=== PATIENT | male | born 1960 | race Caucasian/White ===

== ENCOUNTER → 2018-11-03 | Outpatient (CLI) | payer BC | LOC: COL.RAD 09:27 | DX: C61 Malignant neoplasm of prostate (principal); M19.011 Primary osteoarthritis, right shoulder; M19.012 Primary osteoarthritis, left shoulder | CPT/HCPCS: A9503 ==

== ENCOUNTER 2018-11-25 08:10 | Inpatient (IN) | payer BC ==
[~2018-11-25] VITALS: Ht 182.9 cm; Wt 94.5 kg
[2018-12-10] MEDS ORDERED: COZAAR 50MG50 MG/TAB PO (10:43)
[2018-12-11] VITALS (12 sets, daily range): BP systolic 115–125; BP diastolic 70–83; PULSE 55–83; TEMP 97.7–98
[2018-12-11] MEDS ORDERED: AMOXICILLIN 50500 MG PO (06:38)
[2018-12-11 07:17] LABS: BASO # 0.1 (0.0-0.2); BASO % 0.7 % (0.0-2.0); EOS # 0.2 (0.0-0.7); EOS % 2.4 % (0-4.0); GRAN # 4.7 (1.4-6.5); GRAN % 65.8 % (42.2-75.2); HEMATOCRIT 46.3 % (42.0-52.0); HEMOGLOBIN 16.3 g/dl (13.5-18.0); LYMPH # 1.7 (1.2-3.4); LYMPH % 23.6 % (20.0-51.0); MEAN CELL VOLUME 90 fl (80.0-100.0); MEAN CORPUSCULAR HEMOGLOBIN 32 pg (27.0-31.0); MEAN CORPUSCULAR HGB CONC 35 g/dl (33.0-37.0); MONO # 0.5 (0.1-0.6); MONO % 7.1 % (1.7-9.3); PLATELET COUNT 203 K/mm3 (130-400); RED BLOOD COUNT 5.12 M/mm3 (4.20-5.60); REDCELL DISTRIBUTION WIDTH-CV 12.6 % (11.5-14.5)
[2018-12-11 07:21] LABS: CALCIUM 9.2 mg/dL (8.4-10.2); CREATININE, serum 0.88 (0.66-1.25); POTASSIUM 4.2 mmol/L (3.4-5.0)
--- NOTE | 2018-12-11 12:30 | NUR ---
Patient up from OR to room by bed. Alert and oriented x3. Family at bedside. Lap sites x5 with swiftset, CDI. Lai drain to LLQ with ELIGIO to bulb compression, bloody drainage present. Reynolds to dependent drainage with blood tinged urine present in bag. SCDs to BLE. Post op VSS. Denies pain or further needs at this time.
--- NOTE | 2018-12-11 19:34 | NUR ---
Patient in bed resting. States that Dr. Fitch told him that he should not ambulate tonight due to complexity of procedure. Reynolds maintained to dependent drainage with clear yellow urine present. States pain to lower back (chronic), given tylenol and toradol per orders. Denies further needs at this time. 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
--- NOTE | 2018-12-11 23:14 | NUR ---
Patient resting in bed with at bedside. Has continued clear liquid diet. States pain to abdomen is 3/10, but pain to back is 8/10. PRN Tramadol (2 tabs) given. Upon reassessment, patient was snoring with eyes closed. Noted to have drain to left abdomen to bulb compression. Reynolds draining clear, yellow urine. States sometimes he uses heating pad at home for back pain, but does not want to use one here because he feels too hot. Patient denies any further needs.
[2018-12-12 01:41] VITALS: BP 123/76; PULSE 63; TEMP 97.7
--- NOTE | 2018-12-12 03:37 | NUR ---
Patient awake in bed at this time looking at his phone. Requested and received fresh ice water. Denies further needs.
[2018-12-12 04:00] VITALS: BP 120/82; PULSE 60; TEMP 98.2
[2018-12-12 07:00] LABS: BASO % 0.2 % (0.0-2.0); EOS # 0.1 (0.0-0.7); EOS % 0.5 % (0-4.0); GRAN # 8.1 (1.4-6.5); HEMATOCRIT 38.4 % (42.0-52.0); LYMPH # 1.9 (1.2-3.4); LYMPH % 17.2 % (20.0-51.0); MEAN CELL VOLUME 91 fl (80.0-100.0); MEAN CORPUSCULAR HEMOGLOBIN 31 pg (27.0-31.0); MEAN CORPUSCULAR HGB CONC 34 g/dl (33.0-37.0); MEAN PLATELET VOLUME 9.7 fl (7.4-10.4); MONO # 0.7 (0.1-0.6); MONO % 6.8 % (1.7-9.3); PLATELET COUNT 177 K/mm3 (130-400); RED BLOOD COUNT 4.21 M/mm3 (4.20-5.60); REDCELL DISTRIBUTION WIDTH-CV 12.8 % (11.5-14.5)
[2018-12-12 07:01] LABS: HEMOGLOBIN 13.2 g/dl (13.5-18.0)
[2018-12-12 07:13] LABS: CALCIUM 8.6 mg/dL (8.4-10.2); CREATININE, serum 0.89 (0.66-1.25)
[2018-12-12 08:08] VITALS: BP 120/82; PULSE 62; TEMP 98
--- NOTE | 2018-12-12 10:32 | NUR ---
Patient resting in bed. Progress to general diet. Stressed the importance of progressing diet slowly. He has tolerated well. Patient up and ambulated the entire third floor & did well. Scales to DD, we started scales education both verbal & written education given. Abdomen soft, lap site x5 edges well approximated. He reports passing Flatus. Brian draint o bulb compression, Iv to INT. Student nurse assisting with care.
--- NOTE | 2018-12-12 10:49 | NUR ---
SW met with patient and about discharge planning. Patient lives independently at home with his and plans to return there upon discharge. Patient's PCP is Dr Michel and he obtains prescriptions from [facility] in [place]. Patient does not use any home health services or DME in the home. Patient does not have a DPOA and is not interested in completing one at this time. SW does not anticipate any discharge needs.
--- NOTE | 2018-12-12 12:30 | NUR ---
Patient ready for discharge. Dr. Fitch rounded & orders obtained. Patient given scales education & leg bag teaching. He was able to demonstrate scales care. Patient sent with scripts for stool softners,Cipro, & Percocet. We reviewed & medication list & medication safety. His follow up appt scheduled. Int DC. Student nurse removed ELIGIO drain. Patient & his deny questions or concerns, Thankful for care. Patient ambulated out with all belongings, His taking him home.
--- NOTE | 2018-12-12 12:32 | NUR ---
Danyel Shannon drain removed per protocal. Pt dressing removed, suture cute and removed. Pt instructed to take deep breath, drain removed on exhale. Incision site covered with pressure. Clean 4X4 folded in fourths to cover site with Tegaderm covering. Pt tolerated well.
--- NOTE | 2018-12-12 12:36 | NUR ---
Pt discharged home with spouse to assist. Pt ambulated with escort to exit while spouse brought car around and picked him up. Pt had no concerns at this time.
== END 2018-12-12 12:38 | disposition home or self-care (01) | DRG 708 ==
LOC: INPTSU 12-11 05:14 → SURG 12-11 07:30
PROVIDERS: ADMIT Urology
PROC: 07TC4ZZ Resection of Pelvis Lymphatic, Percutaneous Endoscopic Approach (ICD-10-PCS; 2018-12-11)
PROC: 8E0W4CZ Robotic Assisted Procedure of Trunk Region, Percutaneous Endoscopic Approach (ICD-10-PCS; 2018-12-11)
PROC: 0VT04ZZ Resection of Prostate, Percutaneous Endoscopic Approach (ICD-10-PCS; principal; 2018-12-11 07:30)
DX: C61 Malignant neoplasm of prostate (principal); I10 Essential (primary) hypertension
CPT/HCPCS: J0690; J1100; J1885; J2405; J2704; J3010; J7120